=== PATIENT | female | born 2000 | race Caucasian/White ===

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

== ENCOUNTER 2023-10-25 02:25 | Emergency (ER) | payer OTHER ==
[~2023-10-25] VITALS: Ht 157.4 cm; Wt 63.5 kg
[2023-10-25 02:52] LABS: BASO # 0.1 10*3/uL (0.0-0.1); BASO % 0.5 % (0.0-1.0); EOS % 0.2 % (1.0-4.0); HEMATOCRIT 35.5 % (37.0-47.0); LYMPH # 1.5 10*3/uL (1.3-4.4); LYMPH % 12.8 % (27.0-41.0); MEAN CELL VOLUME 80.5 fl (81.0-99.0); MEAN CORPUSCULAR HGB 24.9 pg (27.0-31.0); MEAN PLATELET VOLUME 10.7 fl (9.6-12.3); MONO % 8.9 % (3.0-9.0); NEUT # 8.8 10*3/uL (2.3-7.9); NEUT % 77.2 % (47.0-73.0); PLATELET COUNT AUTOMATED 308 10*3/uL (130-400); RED BLOOD COUNT 4.41 10*6/uL (4.10-5.10); WHITE BLOOD COUNT 11.4 10*3/uL (4.8-10.8)
[2023-10-25 03:02] LABS: BILIRUBIN Negative (Negative); BLOOD 2+ (Negative); CLARITY Clear (Clear); COLOR Yellow (Yellow); GLUCOSE Negative (Negative); KETONE Trace (Negative); LEUKO ESTERASE 2+ (Negative); NITRITE Negative (Negative); PH 5.5 (4.5-8.0); SPECIFIC GRAVITY >= 1.030 (1.001-1.030)
[2023-10-25 03:11] LABS: EPITHELIAL CELLS 21-30
[2023-10-25 03:12] LABS: BACTERIA TRACE; RBC 41-50 rbc/hpf (0-2); WBC 31-40 wbc/hpf (0-5)
[2023-10-25] MEDS ORDERED: Ketorolac Tromethamine 60 MG/2 ML VIAL IM ONE (03:20)
== END 2023-10-25 03:50 | disposition home or self-care (01) ==
LOC: ED 02:25
PROVIDERS: Internal Medicine
DX: N94.6 Dysmenorrhea, unspecified (principal); Z98.890 Other specified postprocedural states